=== PATIENT | male | born 1965 | race Caucasian/White ===

== ENCOUNTER 2017-05-23 20:28 | Observation (INO) | payer OTHER ==
[~2017-05-23] VITALS: Ht 188 cm; Wt 107.5 kg
[2017-05-23 20:25] VITALS: BP_SYST 152; BP_SYST 154; BP_DIAS 103; BP_DIAS 97
[2017-05-23 20:43] VITALS: BP 154/103
[2017-05-23] MEDS ORDERED: ENALAPRILAT 1.25 MG/ML, 2ML IVPush PRN (23:00)
[2017-05-23] MEDS ORDERED: NITROGLYCERIN 0.4 MG BOTTLE (25 TABS) SL PRN (23:00)
[2017-05-23] MEDS ORDERED: ACETAMINOPHEN 325 MG TABLET PO PRN (23:00)
[2017-05-23] MEDS ORDERED: ONDANSETRON ODT 4 MG PO PRN (23:00)
[2017-05-23] MEDS ORDERED: ENOXAPARIN 40 MG/0.4 ML SQ SCH (23:00)
[2017-05-23 23:24] VITALS: BP 144/95
[2017-05-23 23:42] LABS: TROPONIN I < 0.015 ng/mL (0.000-0.045)
[2017-05-24 00:20] VITALS: BP 127/84
[2017-05-24 05:41] LABS: CHOL/HDL RATIO 3.7; CHOLESTEROL, TOTAL 175 mg/dL (140-239); HDL CHOL % 27 % (26-37); HDL CHOLESTEROL (DIRECT) 47 mg/dL (40-60); LDL CHOLESTEROL,CALCULATED 72 mg/dL (54-169); LDL/HDL RATIO 1.5 (0.5-3.0); TRIGLYCERIDES 279 mg/dL (50-200); TROPONIN I < 0.015 ng/mL (0.000-0.045); VLDL CHOLESTEROL 56 mg/dL (0-25)
[2017-05-24 05:44] LABS: HEMOGLOBIN A1C 5.4 % (4.2-6.3)
[2017-05-24] MEDS ORDERED: REGADENOSON 0.4 MG/5 ML SYRINGE ONE (07:37)
[2017-05-24 10:33] VITALS: BP 132/97
[2017-05-24 10:54] VITALS: BP 144/94
[2017-05-24 12:54] VITALS: BP 139/95
[2017-05-24] MEDS ORDERED: OMEP20TA62 PO (13:57)
== END 2017-05-24 15:46 | disposition home or self-care (01) ==
LOC: INTOOBSV 20:32 → 5SO 20:32 → DCLOUNGE 05-24 15:38
PROVIDERS: ADMIT Internal Medicine; ATTEND Internal Medicine
DX: R07.89 Other chest pain (principal); I11.9 Hypertensive heart disease without heart failure; K21.9 Gastro-esophageal reflux disease without esophagitis; E66.9 Obesity, unspecified
CPT/HCPCS: 36415; 78452; 80061; 83036; 84484; 93005; 93017; 93306; 96372; A9502; C9898; G0378; J1650; J2785

== ENCOUNTER → 2017-07-07 | Outpatient (CLI) | payer OTHER ==
[~2017-07-07] MED LIST: OMEP20TA62 PO
== END | disposition home or self-care (01) ==
LOC: RAD 14:17
PROVIDERS: ATTEND Family Medicine
DX: R94.5 Abnormal results of liver function studies (principal)
CPT/HCPCS: 76705